=== PATIENT | female | born 2005 | race Caucasian/White ===

== ENCOUNTER 2025-01-08 | Emergency (ER) | payer BC ==
[~2025-01-08] VITALS: Ht 167.6 cm; Wt 61.2 kg
[2025-01-08] MEDS ORDERED: CIPR500T5 PO (00:49)
[2025-01-08 01:17] VITALS: BP 116/79; TEMP 98.5; O2SAT 98
== END 2025-01-08 01:20 | disposition home or self-care (01) ==
LOC: ER 00:06
DX: S71.012A Laceration without foreign body, left hip, initial encounter (principal); X58.XXXA Exposure to other specified factors, initial encounter; Y93.9 Activity, unspecified; Y92.89 Other specified places as the place of occurrence of the external cause; Y99.8 Other external cause status